=== PATIENT | female | born 1995 | race Caucasian/White ===

== ENCOUNTER → 2017-04-04 | Outpatient (REF) ==
[~2017-04-04] MED LIST: SPRINTEC 35 MCG1 TAB PO
== END | disposition home or self-care (01) ==
LOC: COL.ER 01:23 → EDSTATUS 01:28
DX: Z02.89 Encounter for other administrative examinations (principal)

== ENCOUNTER → 2017-04-04 | Emergency (ER) | payer OTHER ==
[~2017-04-04] VITALS: Ht 170.2 cm; Wt 63.6 kg
[2017-04-04 01:32] VITALS: BP 140/97; PULSE 94; TEMP 98.6
[2017-04-04 06:24] LABS: AMPHETAMINE URINE NEGATIVE; BARBITURATES URINE NEGATIVE; BENZODIAZEPINES URINE NEGATIVE; BUPRENORPHINE URINE NEGATIVE; METHADONE URINE NEGATIVE; OPIATES URINE NEGATIVE; OXYCODONE URINE NEGATIVE; PHENCYCLIDINE URINE NEGATIVE; PROPOXYPHENE URINE NEGATIVE; THC CANNABINOIDS URINE NEGATIVE
== END | disposition home or self-care (01) ==
LOC: COL.ER 01:16
PROVIDERS: Emergency Medicine
DX: F10.120 Alcohol abuse with intoxication, uncomplicated (principal); N89.8 Other specified noninflammatory disorders of vagina; Z02.89 Encounter for other administrative examinations
CPT/HCPCS: J0696